=== PATIENT | female | born 1950 | race Caucasian/White ===

== ENCOUNTER 2017-12-06 08:09 | Outpatient (CLI) | payer MEDICARE, OTHER ==
--- NOTE | 2017-12-06 14:08 | PET ---
RADIONUCLIDE PET SCAN WITH CT ATTENUATION CORRECTION AND SPECT IMAGING: HISTORY: Lymphoma. Initial staging. FINDINGS: Physiologic uptake of radiotracer is present throughout the enteric system and along each urinary tra ct. Uptake at the right gluteus medius muscle has the appearance of physiologic musculotendinous act ivity. The superiormost images show uptake at the left frontal scalp with a maximum SUV of 6.2. The lesion/ postoperative bed are not completely included. Nonhypermetabolic lymph nodes are present at each axilla. No hypermetabolic adenopathy is apparent w ithin the chest or abdomen. Nondiagnostic CT attenuation correction images show scattered diverticul a arising from the colon without adjacent inflammation. There are degenerative changes of the lumbar spine. IMPRESSION: No evidence of metastatic lymphadenopathy. The left frontal scalp lesion/postoperative bed is not co mpletely included on the exam. POS: MELISSA
== END 2017-12-06 08:10 | disposition home or self-care (01) ==
LOC: PET 08:09
PROVIDERS: ATTEND Internal Medicine Hematology & Oncology
DX: C82.51 Diffuse follicle center lymphoma, lymph nodes of head, face, and neck (principal)
CPT/HCPCS: 78815; A9552

== ENCOUNTER 2025-06-18 11:55 | Outpatient (CLI) | payer MEDICARE, OTHER | END 2025-06-18 11:56 | disposition home or self-care (01) | LOC: BICMAMMO 11:55 | PROVIDERS: ATTEND Nurse Practitioner Family | DX: Z78.0 Asymptomatic menopausal state (principal); M85.859 Other specified disorders of bone density and structure, unspecified thigh | CPT/HCPCS: 77080 ==